=== PATIENT | female | born 1945 | race Caucasian/White ===

== ENCOUNTER 2016-12-22 09:20 | Outpatient (CLI) | payer MEDICARE ==
--- NOTE | 2016-12-22 10:52 | Mammography Report ---
Screening mammogram: Routine views compared to prior exams dating back to 2014. There is a stable circumscribed nodule in the lateral left breast. There is a mildly heterogeneous and symmetrically distributed pattern otherwise containing heavy vascular calcifications throughout both breasts. These findings are all unchanged. No new findings. CAD used. Impression: Stable breast pattern. Recommendation: Annual mammogram followup. BI-RADS CATEGORY: 2 = Benign ACR BI-RADS MAMMOGRAPHIC CODES: 0 = Needs additional imaging evaluation; 1 = Negative; 2 = Benign; 3 = Probably benign; 4 = Suspicious; 5 = Malignant; 6 = Known biopsy-proven malignancy COMMENT: 1. Dense breast tissue, i.e., adenosis, fibrocystic changes, etc., may obscure an underlying neoplasm. 2. Approximately 10% of cancers are not detected with mammography. 3. A negative mammography report should not delay biopsy if a clinically suspicious mass is present.
== END 2016-12-22 09:21 | disposition home or self-care (01) ==
LOC: MAMMO 09:20
PROVIDERS: ATTEND Family Medicine
DX: Z12.31 Encounter for screening mammogram for malignant neoplasm of breast (principal); I10 Essential (primary) hypertension; E11.9 Type 2 diabetes mellitus without complications; I25.10 Atherosclerotic heart disease of native coronary artery without angina pectoris; E78.00 Pure hypercholesterolemia, unspecified; E03.9 Hypothyroidism, unspecified
CPT/HCPCS: 77067; G0202

== ENCOUNTER 2018-11-02 11:10 | Outpatient (CLI) | payer MEDICARE ==
--- NOTE | 2018-11-02 12:16 | XRay Report ---
LEFT ELBOW, 3 views: History: left elbow pain. Mild osteopenia. A moderate to large joint effusion is identified on the lateral image. No evidence for acute fracture or bone lesion. Mild osteoarthritic changes are identified. An approximately 1.2 cm rounded calcification overlies the medial epicondyles of distal humerus which is of uncertain significance. This may represent a calcified interarticular foreign body or soft tissue calcification. IMPRESSION: Osteopenia. Mild osteoarthritis. Moderate to large joint effusion is identified. This could represent an occult fracture or osteochondral defect. There is no obvious displaced fracture. If further evaluation is needed, MRI left elbow should provide the most information.
== END 2018-11-02 11:11 | disposition home or self-care (01) ==
LOC: XRAY 11:10
PROVIDERS: ATTEND Internal Medicine
DX: M19.022 Primary osteoarthritis, left elbow (principal); M85.812 Other specified disorders of bone density and structure, left shoulder; M25.412 Effusion, left shoulder; E78.00 Pure hypercholesterolemia, unspecified; I10 Essential (primary) hypertension; E11.9 Type 2 diabetes mellitus without complications; E03.9 Hypothyroidism, unspecified; Z90.710 Acquired absence of both cervix and uterus